=== PATIENT | male | born 1980 | race Caucasian/White ===

== ENCOUNTER 2025-04-08 11:23 | Outpatient (REF) | payer BC, SELFPAY ==
[2025-04-08 12:06] LABS: MANUAL DIFF FLAG NO
[2025-04-08 12:29] LABS: Hematocrit 46.0 % (42.0-52.0); Hemoglobin 15.4 g/dl (14.0-18.0); Imm Gran Abs Auto 0.01 X10*3/uL (0.00-0.03); Imm Gran Pct Auto 0.2 % (0.0-0.4); Lymphocytes Absolute Auto 1.8 X10*3/uL (1.2-4.9); Mean Corpuscular HGB Conc 33.5 g/dl (31.0-36.0); Mean Corpuscular Hemoglobin 28.8 pg (27.0-33.0); Mean Corpuscular Volume 86.0 fL (80.0-98.0); NRBC Abs Auto 0.000 X10*3/uL (0.0-0.012); NRBC Pct Auto 0.0 /100WBC (0.0-0.2); Platelet Count 201 X10*3/uL (160-400); Red Blood Count 5.35 X10*6/uL (4.60-5.80); White Blood Count 6.3 X10*3/uL (4.8-10.8)
[2025-04-08 13:16] LABS: Alanine Aminotransferase 24 U/L (0-40); Albumin Level 3.9 g/dL (3.5-5.0); Alkaline Phosphatase 98 U/L (39-117); Anion Gap 10 (12-20); Aspartate Amino Transferase 24 U/L (5-37); Blood Urea Nitrogen 13 mg/dL (9-16); Calcium 9.5 mg/dL (8.4-10.2); Carbon Dioxide 30 mmol/L (22-29); Chloride 105 mmol/L (96-108); Cholesterol 144 mg/dL (<200); Estimated Glomerular Filt Rate > 60; HDL Cholesterol 31 mg/dL (>40); Potassium 4.0 mmol/L (3.3-5.1); Sodium 141 mmol/L (135-145); Total Protein 6.8 g/dL (6.5-8.0); Triglycerides 131 mg/dL (<150)
[2025-04-09 08:18] LABS: Syphilis Screen Nonreactive (Nonreactive)
[2025-04-09 08:46] LABS: HBc Num1 0.04 S/CO (0.00-0.79); HBsAGNum1 0.59 S/CO (0.00-0.99); HIV Num 1 0.05 S/CO (0.00-0.99); Hepatitis A Antibody IgM 0.20 Index (0-0.79); Hepatitis B Surface Antigen Negative (Negative); ~HepC Num1 0.06 S/CO (0.00-0.79); ~Hepatitis A Antibody IgM Nonreactive (Nonreactive); ~Hepatitis B Surface Antibody REACTIVE (Nonreactive); ~Hepatitis C Antibody Nonreactive (Nonreactive)
[2025-04-13 18:18] LABS: Testosterone, Free 44.5 pg/mL (35.0-155.0)
== END 2025-04-08 11:24 | disposition home or self-care (01) ==
LOC: HO.LAB 11:23
PROVIDERS: PCP Student in an Organized Health Care Education/Training Program; Visit Provider Student in an Organized Health Care Education/Training Program
DX: Z76.89 Persons encountering health services in other specified circumstances (principal); N52.9 Male erectile dysfunction, unspecified; E87.0 Hyperosmolality and hypernatremia
CPT/HCPCS: 36415; 80053; 80061; 82306; 83036; 84402; 84403; 84443; 85025; 86704; 86706; 86709; 86780; 86803; 87340; 87389; 96127

== ENCOUNTER 2025-04-08 11:23 | Outpatient (AMB) | payer BC, SELFPAY ==
--- NOTE | 2025-04-08 11:24 | MHC.PC.OV ---
Vital Signs 04/08/25 11:29 Height 6 ft 4 in Weight 326 lb BMI 39.7 BP 150/84 H Blood Pressure Location Lt brachial Position Sitting Respiration 16 Pulse 54 Pulse Source Pulse Oximeter Temp 97.9 F Temp Source Temporal Artery Scan Pulse Oximetry (%) 98 Oxygen Delivery Method Room Air Intake Visit Reasons: JANUSZ / Dr Alan Infrastructure Engineer Required: No Accompanied by: Self / Same As Patient Allergies No Known Allergies Allergy (Verified 04/08/25 11:24) Tobacco use date assessed: 04/08/25 Dental Screening Dental Screen Date: 04/08/25 Did you have a dental visit in the last 12 months?: Yes Did you have a dental problem in the last 6 months where you did not have access to dental care?: No Was dental information given to patient?: Patient has dentist HPI HPI Comments History of Present Illness Details The patient is a 44-year-old male presenting with concerns for erectile dysfunction. The patient reports experiencing erection problems for an unspecified duration, lacking morning erections, and describes the frequency of morning erections as having significantly decreased compared to his past experiences. He notes difficulty in initiating intercourse due to these issues. The patient has not attempted the use of zoyk-jle-rnxcohn treatments such as sildenafil or other similar medications. There is no history of trauma to the area, indicating these issues developed without an obvious physical incident. The patient was also present for a routine wellness check. He reports feeling generally healthy with no significant medical issues. He has no history of heart disease or diabetes. The patient's family history is significant for lung cancer in his father, who was a lifetime smoker and recently . The patient himself is a lifelong non-smoker and denies any alcohol consumption for several years, with no history of using recreational drugs. He expresses a desire to improve his health and prevent issues seen in his father by reducing weight and incorporating more regular medical visits. 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, consistent activity level - Family: with two children - Substance Use: Lifelong non-smoker, no past or current alcohol use, denies recreational drug use - Weight Management: Acknowledges the need for weight loss and expresses intent to improve health habits - Exercise: Intention to become more physically active [facility] Medical History (Updated 04/08/25 @ 11:44 by Luciano Isabel MD) Essential hypernatremia Erectile disorder Social History Housing: House e-Cigarette/Vaping Use: Never Used service: No Current occupational status: employed 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 1. Little interest or pleasure in doing things: not at all 2. Feeling down, depressed, or hopeless: not at all 3. Trouble falling or staying asleep, or sleeping too much: not at all 4. Feeling tired or having little energy: not at all 5. Poor appetite or overeating: not at all 6. Feeling bad about yourself - or that you are a failure or have let yourself or your family down: not at all 7. Trouble concentrating on things, such as reading the newspaper or watching television: not at all 8. Moving or speaking so slowly that other people could have noticed. Or the opposite - being so fidgety or restless that you have been moving around a lot more than usual: not at all 9. Thoughts that you would be better off or of hurting yourself in some way: not at all Total score: 0 Depression Screening Interpretation: Negative Depression Screening Done: Yes 40415 - PHQ-9 Billing: Yes Source: Developed by Drs. Rayshawn Eli, Margoht Hamilton, Benny Prakash and colleagues, with an educational jose from [employer]. Thrive Questionnaire Date Thrive assessed: 04/08/25 I am a: Patient What is your living situation today?: I have a steady place to live Within the past 12 months, did the food you bought not last and you didn't have the money to get more?: Never true Within the past 12 months, did you worry whether your food would run out before you got money to buy more?: Never true Do you have trouble paying for medicines?: No Do you have trouble getting transportation to medical appointments?: No Do you have trouble paying your heating and electricity bill?: No Do you have trouble taking care of your child, family member or friend?: No Do you have trouble with day-to-day activities such as bathing, preparing meals, shopping, managing finances, etc.?: No Are you currently unemployed and looking for a job?: No Are you interested in more education?: No THRIVE Score: 0 AUDIT C Alcohol Use Questionnaire (AUDIT-C) 1. How often do you have a drink containing alcohol?: Never 3. How often do you have six or more drinks on one occasion?: Never Total Score: 0 Score Reviewed/Action Taken: Yes NUVIA-7 AMB Questionnaire NUVIA-7 Date NUVIA - 7 assessed: 04/08/25 Feeling nervous, anxious, or on edge: 0 = Not at all Not being able to stop or control worryin = Not at all Worrying too much about different things: 0 = Not at all Trouble relaxin = Not at all Being so restless that it is hard to sit still: 0 = Not at all Becoming easily annoyed or irritable: 0 = Not at all Feeling afraid as if something awful might happen: 0 = Not at all Total NUVIA-7 score (0-4 normal; 5-9 mild; 10-14 moderate; 15-21 severe): 0 Source: Developed by Drs. Rayshawn Eli, Margoth Hamilton, Benny Prakash and colleagues, with an educational jose from [employer]. NUVIA-7 Assessment Billing NUVIA-7 Assessment Tool: NUVIA-7 Assessment 91090 Review of Systems Const Details: - Cardiovascular: Denies family history of heart disease - Endocrine: Denies family history of diabetes - Neurologic: Reports occasional concerns about erectile dysfunction, denies morning erections - Pulmonary: Reports family history of lung cancer - Genitourinary: Reports erectile dysfunction, denies difficulty urinating - Psychiatric: Denies feeling down, depressed, or anxious - Skin: Denies skin lesions, noted to have moles on right arm All systems reviewed & are unremarkable except as reviewed in HPI and above Physical exam (Primary Care) Vital Signs: Last Vital Signs Temp 97.9 F 04/08/25 11:29 Pulse 54 04/08/25 11:29 Resp 16 04/08/25 11:29 BP 150/84 H 04/08/25 11:29 Pulse Ox 98 04/08/25 11:29 Oxygen Delivery Method Room Air 04/08/25 11:29 BMI result Body Mass Index 39.7 Tobacco/Smoking Status: Tobacco use Status Tobacco use date assessed 04/08/25 04/08/25 11:33 e-Cigarette/Vaping Use Never Used 04/08/25 11:33 Depression Screening Interpretation: Negative Const Other: General: Alert and oriented, Well nourished, No acute distress. Eye: Pupils are equal, round and reactive to light, Intact accommodation, Extraocular movements are intact, Normal conjunctiva, Vision unchanged. HENT: Normocephalic, Atraumatic, Tympanic membranes are clear, Normal hearing, Oral mucosa is moist, No pharyngeal erythema, Ear canals patent. Respiratory: Lungs CTA bilaterally, No wheeze, Respirations are non-labored. Cardiovascular: Regular rate, Regular rhythm, S1 auscultated, S2 auscultated, No murmur, Good pulses equal in all extremities, Normal peripheral perfusion, No edema. Gastrointestinal: Soft, Non-tender, Non-distended, Normal bowel sounds, No organomegaly. Musculoskeletal: Normal range of motion, Normal strength, No tenderness, No swelling, No deformity, Normal gait. Integumentary: Warm, Dry, [place], Intact, Multiple moles on the right arm. Neurologic: Alert, Oriented, Normal sensory, Normal motor function, No focal defects, Cranial Nerves II-XII are grossly intact, Normal deep tendon reflexes. Psychiatric: Cooperative, Appropriate mood & affect, Normal judgment. Coding Level of Care Code New Pt Level 3 (03314) Diagnoses Erectile disorder N52.9 Essential hypernatremia E87.0 Additional Codes PHQ-9 - 03572 - PHQ-9 Billing: Yes ([id number]) NUVIA-7 Assessment Billing - NUVIA-7 Assessment Tool: NUVIA-7 Assessment 53655 ([id number]) Assessment & Plan Assessment & Plan (1) Erectile disorder: Code(s): N52.9 - Male erectile dysfunction, unspecified Category: Medical (2) Essential hypernatremia: Comment: 1. Essential Hypertension - Assessment: Blood pressure noted to be on the higher side during the visit. The patient is advised to reduce salt intake and focus on weight loss to naturally decrease blood pressure. - Plan: Monitor blood pressure at home, advised to purchase a blood pressure cuff and log measurements. Follow-up in three months to reassess and determine if pharmacological intervention is needed if lifestyle modifications fail to achieve target blood pressure. Code(s): E87.0 - Hyperosmolality and hypernatremia Category: Medical Plan: Health Maintenance: - Discussed the importance of regular screening and preventive health care, including initiating colon cancer screening at age 45. - Recommended receiving annual flu shots and updated COVID-19 vaccines. - Emphasized weight management and regular exercise for cardiovascular health and general wellness. - Stressing the need for routine blood work to monitor overall health parameters. Patient was informed and verbally consented to the use of an ambient scribe for clinic note documentation during this visit. Plan During the visit, I discussed with the patient the importance of lifestyle modifications to address his hypertension and potential preventable future complications. I emphasized reducing dietary salt intake and engaging in regular physical activity to promote weight loss, which can significantly lower his blood pressure. We talked about the use and potential insurance limitations of sildenafil for his erectile dysfunction and the importance of determining if there are underlying hormonal causes by testing his testosterone levels. Given his intention to improve health habits following his father's from lung cancer, we identified the need for routine health screenings and vaccinations, which I encouraged for preventive health maintenance. I provided guidance on monitoring blood pressure at home and setting a three-month follow-up visit to review progress. Orders: Orders Complete Blood Count Auto Diff Today Z76.89 - Persons encountering health services in other specified circumstances Comprehensive Met. Panel Today Z76.89 - Persons encountering health services in other specified circumstances Hemoglobin A1c Today Z76.89 - Persons encountering health services in other specified circumstances HIV Ab/Ag Today Z76.89 - Persons encountering health services in other specified circumstances Syphilis Screen Today Z76.89 - Persons encountering health services in other specified circumstances Vitamin D 25-OH Total Today Z76.89 - Persons encountering health services in other specified circumstances Testosterone, Free/Total Today N52.9 - Male erectile dysfunction, unspecified Hepatitis A,B,C Profile Today Z76.89 - Persons encountering health services in other specified circumstances Lipid Panel Today Z76.89 - Persons encountering health services in other specified circumstances TSH reflex Free T4 Today Z76.89 - Persons encountering health services in other specified circumstances Referrals Open Access Screening Colonoscopy Referral Z12.11 - Encounter for screening for malignant neoplasm of colon Medications: New sildenafil (Viagra) administer 30 minutes to 4 hours before activity 25 mg PO DAILY PRN 14 tabs 0RF sexual activity Patient Instructions: - Monitor your blood pressure at home several times per week and bring the log to your next visit. - Reduce your salt intake and focus on losing weight through a healthy diet and increased physical activity. - Take sildenafil as prescribed before sexual activity, but never exceed one dose at a time. - Visit the pharmacy to update your flu and COVID-19 vaccines. - Schedule a colonoscopy as you approach age 46 for colorectal cancer screening. - Follow up in three months to review your blood pressure and erectile dysfunction treatment progress.
[2025-04-08 11:29] VITALS: BP 150/84; PULSE 54; RESP 16; TEMP 36.6; O2SAT 98; BMI 39.7
== END 2025-04-08 11:45 | disposition home or self-care (01) ==
PROVIDERS: PCP Student in an Organized Health Care Education/Training Program; Visit Provider Student in an Organized Health Care Education/Training Program
DX: N52.9 Male erectile dysfunction, unspecified (principal); E87.0 Hyperosmolality and hypernatremia